=== PATIENT | male | born 1990 | race Caucasian/White ===

== ENCOUNTER 2018-08-06 14:27 | Inpatient (IN) ==
--- NOTE | 2018-08-06 14:39 | Emergency Department Note ---
Disposition Clinical Impression: Suicide ideation Bipolar affect, depressed Qualifiers: Current episode severity: unspecified Qualified Code(s): F31.30 - Bipolar disorder, current episode depressed, mild or moderate severity, unspecified Disposition: Admitted As Inpatient Condition: Good Time of Disposition: 17:51 Psych HPI - General Stated Complaint: SI Time Seen by Provider: 08/06/18 14:28 Source: patient, EMS Mode of arrival: EMS Limitations: no limitations Nursing Notes Reviewed: Yes Vital Signs Reviewed: Yes - History of Present Illness HPI Narrative: Male patient being sent from [facility] ER for evaluation our facility by our psychiatric team. Patient had lab work completed there but no urinalysis was able to be completed because the patient was able to urinate. Patient is pink slipped at this time. The report as the patient did hold a gun to his head in front of his because he thought she was cheating on him. He ended up filling the ER at one point to go over to sciatica pain probably to be evaluated there however they were unable to evaluate and so they sent him back to the ER. Patient reports that he did have suicidal ideation other day. States he did hold a gun to his head at that time. Patient does have a history of bipolar and is mostly taking an unknown medication for that however he stopped this about 2 weeks ago because he ran out. When questioned about hallucinations he reports he thinks that his is seeing on x-ray set up cameras to look for this. He then got upset because she turned the cameras cough. This is when he decided she will be down to his head. While sitting in the bed the patient is denying suicidal or homicidal ideation. He denies any hallucinations at this exact time. He has no other complaints. No nausea vomiting diarrhea fevers or chills. Vitals are stable. - Related Data Home Medications Medication Instructions Recorded Confirmed No Known Home Drugs 08/06/18 08/06/18 Allergies Allergy/AdvReac Type Severity Reaction Status Date / Time No Known Allergies Allergy Verified 08/06/18 12:04 All systems ED: reviewed and negative except as stated. Review of Systems: As Per HPI Constitutional: Denies: fever ENT ED: Denies: congestion Cardiovascular: Denies: chest pain, palpitations Respiratory: Denies: cough, dyspnea Gastrointestinal: Denies: abdominal pain, nausea, vomiting, diarrhea Musculoskeletal: Denies: back pain Psychiatric: Reports: suicidal thoughts, other (Patient reports setting of a video camera in his house to touch his cheating on him.). Denies: homicidal thoughts, auditory hallucinations, visual hallucinations Past Medical History - Past Medical History Attestation: Yes The following information was validated with the patient. 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 Absent: tenderness - Respiratory Respiratory exam: Present: normal lung sounds bilaterally, respiratory distress. Absent: accessory muscle use - Cardiovascular Cardiovascular exam: Present: regular rate, normal rhythm, normal heart sounds - Abdominal Exam Abdominal exam: Present: soft, Non-Tender. Absent: tenderness, distention, guarding, rebound, rigidity, organomegaly - Extremities Exam Extremities exam: Present: normal inspection, full ROM, normal capillary refill. Absent: tenderness, pedal edema, calf tenderness - Neurological Exam Neurological exam: Present: alert, oriented X3 - Psychiatric Psychiatric exam: Present: normal affect, normal mood - Skin Skin exam: Present: warm, dry, intact, normal color. Absent: rash, cyanosis, diaphoresis Course Course Narrative: Patient's workup completed with the exception of his urinalysis and urine tox screen appetite. He was pink slipped therefore suicidal threats greater than a day ago. Patient does have a history of bipolar and is currently off his me dication. We will finish the workup and have him evaluated by Ia. He is currently pink slipped. He has no complaints currently. - Reevaluation(s) Reevaluation #1: Patient evaluated by Ia. We will admit patient to hospital at this time. Time: 17:50 Vital Signs Temperature 97.3 F L 08/06/18 14:36 Pulse Rate 99 08/06/18 14:36 Respiratory Rate 16 08/06/18 14:36 Blood Pressure 135/84 08/06/18 14:36 O2 Sat by Pulse Oximetry 98 08/06/18 14:36 Temperature 97.3 F L 08/06/18 14:36 Pulse Rate 99 08/06/18 14:36 Respiratory Rate 16 08/06/18 14:36 Blood Pressure 135/84 08/06/18 14:36 O2 Sat by Pulse Oximetry 98 08/06/18 14:36 Oxygen Delivery Oxygen Delivery Room Air Psych - Lab Data Lab Results 08/06/18 08/06/18 Range/Units 15:46 15:46 Urine Color Yellow (Yellow) Urine Clarity Clear (Clear) Urine pH 6.5 (5.0-8.0) pH Units Ur Specific [place] 1.008 L (1.010-1.025) Urine Protein Negative (Neg-Trace) mg/dL Urine Glucose (UA) Normal (Normal) mg/dL Urine Ketones Negative (Negative) mg/dL Urine Blood Negative (Negative) Urine Nitrite Negative (Negative) Urine Bilirubin Negative (Negative) Urine Urobilinogen Normal (Normal) mg/dL Ur Leukocyte Esterase Negative (Negative) Ur Culture Indicated? NO (NO) Urine Opiates Screen Negative (Ideonl=543) ng/mL Ur Barbiturates Screen Negative (Mknmtf=635) ng/mL Ur Phencyclidine Scrn Negative (Cutoff=25) ng/mL Ur Amphetamines Screen Positive H (Ziocpj=4729) ng/mL U Benzodiazepines Scrn Negative (Agvnon=906) ng/mL Urine Cocaine Screen Negative (Cutoff= 300) ng/mL U Marijuana (THC) Screen Negative (Cutoff = 50) ng/mL Ur Drug Screen Interp See Below Psychiatric Medical Clearance - Medical Clearance Checklist Medical History: No Social History Section defined Current Vitals: Last Vital Signs Temp 97.3 F L 08/06/18 14:36 Pulse 99 08/06/18 14:36 Resp 16 08/06/18 14:36 BP 135/84 08/06/18 14:36 Pulse Ox 98 08/06/18 14:36 Psychiatric Lab Panel: Drug Levels and Toxicity 08/06/18 15:46 Urine Opiates Screen Negative Ur Barbiturates Screen Negative Ur Phencyclidine Scrn Negative Ur Amphetamines Screen Positive H U Benzodiazepines Scrn Negative Urine Cocaine Screen Negative U Marijuana (THC) Screen Negative Abnormal Labs: Abnormal lab results Ur Specific [place] 1.008 (1.010-1.025) L 08/06/18 15:46 Ur Amphetamines Screen Positive ng/mL (Rsiihn=[id number]) H 08/06/18 15:46 Statement of Medical Clearance: I have evaluated the patient, reviewed diagnostic information, and certify that the patient's medical condition is sufficiently stable that transfer to the psychiatric unit does not pose a significant risk of deterioration. Attestation Statement - Attestation Attestation: I, Luke Jacobs, examined this patient and my medical decision-making was reviewed with the BACKEND PYTHON DEVELOPER/PA/Advanced Practice Nurse/Resident Physician. I agree with the documented findings, disposition and treatment plan as described except to the extent set forth below. 28-year-old male presents emergency Department with concerns of suicidal ideation. Patient was initially evaluated in outpatient emergency department where he was medically cleared and sent for further evaluation. Patient has been having pervasive thoughts about his significant other cheating on him. They were in a verbal agreement, he grabbed a gun and held it to his head. He admitted to this in the emergency department during our read reevaluation. He did however state that he had "pretended to load the gun" in order to "see her reaction". Patient was medically cleared and evaluated by behavioral health who agreed that he required inpatient treatment for suicidal ideation.
[2018-08-06 16:01] LABS: Bilirubin,Urine Negative (Negative); Blood,Urine Negative (Negative); Clarity,Urine Clear (Clear); Color,Urine Yellow (Yellow); Glucose,Urine (UA) Normal (Normal); Ketones,Urine Negative (Negative); Leukocyte Esterase,Urine Negative (Negative); Nitrite,Urine Negative (Negative); PH,Urine 6.5 pH Units (5.0-8.0); Protein,Urine Negative (Neg-Trace); Specific Gravity,Urine 1.008 (1.010-1.025); Urobilinogen,Urine Normal (Normal)
[2018-08-06 16:15] LABS: Amphetamine Screen,Urine Positive ng/mL (Cutoff=1000); Barbiturate Screen,Urine Negative ng/mL (Cutoff=200); Benzodiazepines Screen,Urine Negative ng/mL (Cutoff=200); Cannabinoid Screen,Urine Negative ng/mL (Cutoff = 50); Cocaine Screen,Urine Negative ng/mL (Cutoff= 300); Opiate Screen,Urine Negative ng/mL (Cutoff=300); Phencyclidine Screen,Urine Negative ng/mL (Cutoff=25)
[2018-08-06] MEDS ORDERED: MOM Conc 10 ML UD.LIQ PO PRN (18:34)
[2018-08-06] MEDS ORDERED: traZODone 50 MG TABLET PO PRN (18:34)
[2018-08-06] MEDS ORDERED: *HR* LORazepam 1 MG TABLET PO PRN (18:34)
[2018-08-06] MEDS ORDERED: Haloperidol Lactate 5 MG/ML VIAL IM PRN (18:34)
[2018-08-06] MEDS ORDERED: *HR* LORazepam 2 MG/ML VIAL IM PRN (18:34)
[2018-08-06] MEDS ORDERED: Mag Hydrox/Al Hydrox/Simeth 30 ML UDC PO PRN (18:34)
[2018-08-06] MEDS ORDERED: Acetaminophen 325 MG TABLET PO PRN (18:34)
[2018-08-06] MEDS ORDERED: Nicotine 2 MG GUM BC PRN (19:05)
[2018-08-06] MEDS ORDERED: Ibuprofen 400 MG TABLET PO PRN (19:40)
[2018-08-06] MEDS: hydrOXYzine pamoate 25 MG CAPSULE PO PRN (20:07)
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
[2018-08-07] MEDS: hydrOXYzine pamoate 25 MG CAPSULE PO PRN (21:30)
--- NOTE | 2018-08-08 10:12 | Psychiatry Progress Note ---
Date of Encounter: 08/08/18 Time of Encounter: 09:57 Subjective Interval history: Patient has been doing well and tolerating the medications. He visited with his yesterday which went well. He plans to go back and live with her and is just going to move forward and not worry about if she did have an affair or not. He denies suicidal or homicidal thoughts, ideations, or plans. No psychosis. Sleep and appetite good. Review of Systems Psychiatric: Denies: depression, suicidal ideation, change in appetite, homicidal ideation, difficulty concentrating Results - Vital Signs Vital Signs: Temp Pulse Resp BP Pulse Ox 97.2 F L 85 16 118/79 97 08/08/18 09:00 08/08/18 09:00 08/08/18 09:00 08/08/18 09:00 08/08/18 09:00 Assessment and Plan (1) Anxiety Current visit: Yes Status: Chronic Plan: Continue hospitalization, Close observation, Suicide Precautions per unit protocol, Encourage participation in unit milieu, Group Therapy, Monitor sleep, Monitor appetite, Secure weapons (drug abuse social worker to call to verify that gun was removed from the home. ) Additional Plan: Continue medication Therapist to call to verify no more gun in home groups Risks, benefits, side effects, alternatives discussed w/pt: Yes Patient agreeable to treatment: Yes (2) Nicotine dependence Current visit: Yes Status: Acute Additional Plan: counselled re use Risks, benefits, side effects, alternatives discussed w/pt: Yes Patient agreeable to treatment: Yes Qualifiers: Nicotine product type: cigarettes Substance use status: uncomplicated Qualified Code(s): F17.210 - Nicotine dependence, cigarettes, uncomplicated Consult Discharge Plan - Plan Referrals: NONE,PCP [Primary Care Provider] - Psychiatry Exam - Constitutional Vitals: Temp Pulse Resp BP Pulse Ox 97.2 F L 85 16 118/79 97 08/08/18 09:00 08/08/18 09:00 08/08/18 09:00 08/08/18 09:00 08/08/18 09:00 General appearance: age & developmentally appropriate, well-groomed, well- nourished - Musculoskeletal Gait: normal Station: relaxed Strength & Tone: normal for patient - Psychiatric Patient Orientation: Yes Person, Yes Time, Yes Place Level of alertness: Alert Behavior: calm, cooperative Psychomotor activity: Normal Eye Contact: Maintains Eye Contact Mood Description: Euthymic/stable Patient description of mood: "ok" Affect description: congruent with mood, full range Speech Volume: Normal Speech pattern: normal rate, normal rhythm, normal tone, fluent, spontaneous Language & Vocabulary: consistent with education Thought Process: Linear, Goal Oriented Thought Content: No Suicidal ideation, No Homicidal ideation, No Overt delusions Perceptual Disturbances: No Auditory hallucinations, No Visual hallucinations Attention Span Ability: Capable of Focused Attention Memory Description: Grossly Intact Patient Reliability: Reliable Historian Fund of knowledge: Yes abstraction ability, Yes aware of current events Intelligence Estimate: Average Judgment: Good Insight: Full
[2018-08-08] MEDS: Neosporin OINT 15 GM TUBE TP SCH (22:09)
--- NOTE | 2018-08-09 09:04 | Discharge Summary ---
Date of Encounter: 08/09/18 Time of Encounter: 09:02 Diagnosis - Discharge Diagnosis (1) Anxiety Status: Chronic (2) Nicotine dependence Status: Acute Qualifiers: Nicotine product type: cigarettes Substance use status: uncomplicated Qualified Code(s): F17.210 - Nicotine dependence, cigarettes, uncomplicated Medications - Discharge Medications Prescriptions: hydrOXYzine pamoate [HydrOXYzine Pamoate] 25 mg PO TID PRN #60 capsule PRN Reason: Anxiety Sertraline [Zoloft] 50 mg PO DAILY #30 tablet traZODone [TraZODone] 50 mg PO HS PRN #30 tablet PRN Reason: Insomnia Sertraline [Zoloft] 50 mg PO DAILY #30 tablet 08/09/18 [Rx] hydrOXYzine pamoate [HydrOXYzine Pamoate] 25 mg PO TID PRN #60 capsule 08/09/18 [Rx] traZODone [TraZODone] 50 mg PO HS PRN #30 tablet 08/09/18 [Rx] Allergy/AdvReac Type Severity Reaction Status Date / Time No Known Allergies Allergy Verified 08/06/18 12:04 Results Procedures and tests throughout hospitalization: Completed Lab Orders Category Date Time Status Urinalysis Reflex Cult & Micro [URIN] Stat Lab 08/06/18 15:46 Completed Urine tox screen [Drug Screen, Urine] [UCHEM] Stat Lab 08/06/18 15:46 Completed Provider Date of admission: 08/06/18 18:19 Primary care physician: PCP NONE Discharging clinician: Ramonita Gomez Psychiatry Exam - Constitutional Vitals: Temp Pulse Resp BP Pulse Ox 97.2 F L 67 16 114/67 97 08/08/18 21:00 08/08/18 21:00 08/08/18 21:00 08/08/18 21:00 08/08/18 21:00 General appearance: age & developmentally appropriate, well-groomed, well-nourished - Musculoskeletal Gait: normal Station: relaxed Strength & Tone: normal for patient - Psychiatric Patient Orientation: Yes Person, Yes Time, Yes Place Level of alertness: Alert Behavior: calm, cooperative Psychomotor activity: Normal Eye Contact: Maintains Eye Contact Mood Description: Euthymic/stable Patient description of mood: Good. Ready to get out of here" Affect description: congruent with mood, full range Speech Volume: Normal Speech pattern: normal rate, normal rhythm, normal tone, fluent, spontaneous Language & Vocabulary: consistent with education Thought Process: Linear, Goal Oriented Thought Content: No Suicidal ideation, No Homicidal ideation, No Overt delusions Perceptual Disturbances: No Auditory hallucinations, No Visual hallucinations Attention Span Ability: Capable of Focused Attention Memory Description: Grossly Intact Patient Reliability: Reliable Historian Fund of knowledge: Yes abstraction ability, Yes aware of current events Intelligence Estimate: Average Judgment: Good Insight: Full Hospital Course Hospital course: Mr. Parada is a 28 year old male who was admitted for allegedly having placed an unloaded gun to his head. He maintained throughout his hospitalization that he did not do this. He was started on Zoloft for depression and anxiety as well as when necessary Vistaril for anxiety and when necessary trazodone for insomnia.Patient was educated of diagnosis and the risk-benefit side effects of this alternative treatment options and was monitored for responsiveness and side effects. Mood anxiety sleep and appetite interest improved as did future orientation. Self-harm thoughts subsided, thinking cleared, psychosis resolved, and mood stabilized. Patient was able to attend both individual and group therapy sessions as well as meet with the psychiatrist daily and urged to discuss any medication or treatment issues or other concerns. The patient was educated primarily by verbal means about their diagnosis and manifestations in their life. The option for treatment including group and individual therapy programming was offered to the patient in addition to the use of medications with all their potential risks, benefits, and side effects as well as the risks of not taking medication and non-adhereance were discussed with the patient at length. The patient was given the opportunity to ask questions and was noted to participate in the treatment in the planning process. The patient felt ready and eager to be discharged from the inpatient psychiatric unit to continue on with treatment as an outpatient. The patient agreed that is they were safe for this disposition. The patient was considered to be able to participate in informed consent and decision making with respect to medical, legal, and financial issues of the time of discharge. At the time of discharge the patient adamantly denied any concerns for lethality including suicidal or homicidal thoughts ideations or plans and was future oriented toward ongoing mental health care, medical follow-up and sobriety. The therapist verified that the patient's removed the gun from the home. Time spent discussing smoking cessation with patient: 3 to 10 minutes Does patient wish to continue nicotine replacement upon disc: No - Time Spent with Patient Total time spent providing and/or coordinating discharge services: 25 Less than 30 minutes Specific discharge activities: Interval history reviewed. Available labs reviewed . Psychotherapy provided. Patient had an opportunity to ask questions and address concerns. Patient was in agreement with the treatment plan. The risks benefits and side effects of medications were discussed with the patient, including alternatives and treatment. The patient was educated on the abstaining from any alcohol or illicit substances, following up with all scheduled appointments, and taking all medications as prescribed. The patient was educated on 90 meetings in 90 days and to find a sponsor. Assessment and Plan - Patient/Caregiver Discharge Instructions Activity: resume usual activities as tolerated, return to work Diet: regular diet Additional Instructions: Continue current medications. Follow up with outpatient mental health. Encourage continued therapy in a group or individual setting. The patient was discharged to home. - Follow up Plan Follow up with: NONE,PCP [Primary Care Provider] - Functional capacity at discharge: independent ambulation Overall status at discharge: Stable Disposition: Home, Self-Care Quality - Multiple Antipsychotics Patient discharged on 2 or more antipsychotic medications: No Procedures - Procedures Procedures: Medication Management, Crisis Stabilization, Supportive Therapy, Group Therapy, Psychoeducational Therapy
[2018-08-09] MEDS: Neosporin OINT 15 GM TUBE TP SCH (09:25)
[2018-08-09 10:09] VITALS: BP 125/74
== END 2018-08-09 11:12 | disposition home or self-care (01) | DRG 756 ==
LOC: EMEROOARM 14:27 → 1ANU 18:19
PROVIDERS: ADMIT Psychiatry & Neurology Psychiatry; ATTEND Psychiatry & Neurology Psychiatry

== ENCOUNTER 2019-01-12 16:47 | Observation (INO) ==
--- NOTE | 2019-01-12 18:33 | Emergency Department Note ---
Disposition Clinical Impression: Suicidal ideation Disposition: Admitted As Inpatient Condition: Fair Referrals: NONE,PCP [Primary Care Provider] - Time of Disposition: 18:33 General Adult HPI - General Chief complaint: ED Psychiatric Symptoms Stated complaint: si Time Seen by Provider: 01/12/19 17:00 Source: EMS Limitations: no limitations Nursing Notes Reviewed: Yes Vital Signs Reviewed: Yes - History of Present Illness HPI Narrative: Patient presents with suicidal ideation but he does not have a plan. Patient has been using methamphetamine and also using heroin. He is upset recently because his and kids have left him. He does not have hallucinations. No homicidal ideation or plan. Social history: Drug use Pain Scale: 5 - Related Data Allergies Allergy/AdvReac Type Severity Reaction Status Date / Time No Known Allergies Allergy Verified 10/05/18 00:48 All systems ED: reviewed and negative except as stated. Past Medical History - Past Medical History Medical history: Reports: no medical history Surgical history: Reports: other (Testicular surgery) Psychiatric history: Reports: bipolar - Social History Smoking Status: Current every day smoker Smokeless Tobacco Status: No Alcohol use: Reports: none Drug use: Reports: opiates, methamphetamine Physical Exam CONSTITUTIONAL: Alert and oriented X3, well-nourished, well appearing, in no apparent distress HEAD: Normocephalic; atraumatic. EYES: PERRL, no scleral icterus. NOSE: The nose is normal in appearance without rhinorrhea RESP: Normal chest excursion with respiration; breath sounds clear and equal bilaterally; no wheezes, rhonchi, or rales CARD: Regular rhythm, without murmurs, rub or gallop ABD: Non-distended; non-tender, soft,without rigidity, rebound or guarding SKIN: Normal for age and race; warm and dry; no apparent lesions - General Limitations: no limitations Course Vital Signs Temperature 98 F 01/12/19 16:52 Pulse Rate 73 01/12/19 16:52 Respiratory Rate 16 01/12/19 16:52 Blood Pressure 110/61 01/12/19 16:52 O2 Sat by Pulse Oximetry 98 01/12/19 16:52 Temperature 98 F 01/12/19 16:52 Pulse Rate 73 01/12/19 16:52 Respiratory Rate 16 01/12/19 16:52 Blood Pressure 110/61 01/12/19 16:52 O2 Sat by Pulse Oximetry 98 01/12/19 16:52 Oxygen Delivery Oxygen Delivery Room Air Medical Decision Making - MDM Narrative Medical decision making narrative: Patient did have lab results and I did review these and [facility] was contacted and they have seen the patient and I did speak with them and they would like the patient admitted so I will fill out a pink slip form the patient will be admitted. [id number]
[2019-01-12] MEDS ORDERED: *HR* LORazepam 1 MG TABLET PO PRN (19:20)
[2019-01-12] MEDS ORDERED: Haloperidol Lactate 5 MG/ML VIAL IM PRN (19:20)
[2019-01-12] MEDS ORDERED: traZODone 50 MG TABLET PO PRN (19:20)
[2019-01-12] MEDS ORDERED: *HR* LORazepam 2 MG/ML VIAL IM PRN (19:20)
[2019-01-12] MEDS ORDERED: hydrOXYzine pamoate 25 MG CAPSULE PO PRN (19:20)
[2019-01-12] MEDS ORDERED: Ibuprofen 400 MG TABLET PO PRN (19:20)
[2019-01-12] MEDS ORDERED: Mag Hydrox/Al Hydrox/Simeth 30 ML UDC PO PRN (19:20)
[2019-01-12] MEDS ORDERED: MOM Conc 10 ML UD.LIQ PO PRN (19:20)
--- NOTE | 2019-01-13 16:46 | Discharge Summary ---
Date of Encounter: 01/14/19 Time of Encounter: 16:45 History of Present Illness Chief complaint: "I'm doin' better." Admitted From: Emergency Dept History of Present Illness: Mr. Parada is a 28 year old male who tells me "I'm doin' good". He explains to me that he was brought in by his mother after he got to a disagreement with his over the issue of his drug use. He states he told his mother bring to the hospital, at the time he was having thoughts of suicide but denies having those thoughts at this time. He explained to me is been in drug rehab and had been attending twelve-step programs regularly. He had 90 days of sobriety. He tells me he has been doing well at sobriety, but still having conflict with his . She does not believe that he is clean and sober. She thinks that when he is going to mormon or meetings that he is actually using. He states he finally had enough of fighting to defend himself and trying to get her to believe, so said that if she thinks that, then I am going to use and went out and relapsed on Meth. He explains that it was not a smart thing to do. He understands now that it was self-defeating. He is not having craving now, but feels anxious and agitated secondary to what he did. He realizes that he needs to move on with his life and focus on his life and being sober and happy. He states the him his have been estranged for a while over his drug use and even though he sober she does not believe him. He knows that this will not change any time soon. He states he has plans to move to [place], and go ahead and allow the divorce from his . 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 He will move in with family that lives in [place]. He plans to go live with his mother till he gets transitioned to [place], which she believes will take about a week. He states all of his belongings are already in his mother's house. He is close to his 2 children and plans to keep a relationship with them. He denies any problems with depression or anxiety. He states he is frustrated over his behaviour, but not suicidal. He does have a history of having been on Zoloft in the past for treatment of depression, but did not find it helpful and stopped October. He sees practitioner at [facility] in [place], Amira Arias. He can go back to seeing her if he decides to go back on the medication, but will probably be in [place]. He denies any auditory/visual hallucinations. He has no history of suicide attempts. He denies any feelings of hopelessness/helplessness. He likes to go fishing and is still goes fishing. He is not given up on things in his life and his interests. He is not paranoid. He has no thoughts of mind reading or being able to get special messages from the TV or radio. He denies any anxiety at this time except the situational anxiety over what he did with his relapse. Past Med Surg Social Fam HX - Past Medical History Medical history: no medical history - Past Psychiatric History Psychiatric history: Reports: depression Past psychiatric history details: Saw a LOGISTICS TEAM LEADER for SSRI's. Went to drug counseling at [facility] for treatment. Family psychiatric history: No Family History of Suicide: None - Past Surgical History Surgical History: other (Testicular surgery) - Social History Smoking Status: Current every day smoker Smokeless Tobacco Status: No Alcohol use: none Drug use: opiates, methamphetamine Occupational status: unemployed Current living situation: Home - Independent Activity Level: Independent ambulation Recent Out of Country Travel Within the Last 8 Weeks: No Exposure or Possible Exposure to Illness During Travel: No Medications - Discharge Medications No Known Home Drugs 01/12/19 [History] Allergy/AdvReac Type Severity Reaction Status Date / Time No Known Allergies Allergy Verified 10/05/18 00:48 Review of Systems Psychiatric: Reports: depression, anxiety, abnormal sleep pattern, suicidal ideation (denies), irritability Exam - HEENT Head exam IM: Present: atraumatic Eye exam IM: Present: EOMI ENT exam IM: Present: mucous membranes moist - Neurological Neurological exam: Present: CN II-XII intact (per ED eval) - Constitutional Vitals: Temp Pulse Resp BP Pulse Ox 97.7 F 66 20 129/75 96 01/13/19 09:00 01/13/19 09:00 01/13/19 09:00 01/13/19 09:00 01/13/19 09:00 General appearance: age & developmentally appropriate, obese (mildly) - Musculoskeletal Gait: normal Strength & Tone: normal for patient - Psychiatric Patient Orientation: Yes Person, Yes Time, Yes Place, Yes Circumstance Level of alertness: Alert (but tired) Behavior: cooperative Psychomotor activity: Normal Eye Contact: Fleeting Contact Mood Description: Anxious, Other (sad) Affect description: congruent with mood Speech Volume: Normal Speech pattern: normal rate, normal rhythm, normal tone, fluent Language & Vocabulary: consistent with education Thought Process: Intact, Linear, Goal Oriented Thought Content: Yes Intact Attention Span Ability: Capable of Focused Attention Memory Description: Grossly Intact Patient Reliability: Reliable Historian Fund of knowledge: Yes average Intelligence Estimate: Average Judgment: Fair Insight: Partial Diagnosis - Discharge Diagnosis (1) Depression Status: Acute Qualifiers: Depression Type: unspecified Qualified Code(s): F32.9 - Major depressive disorder, single episode, unspecified (2) Amphetamine abuse Status: Acute Assessment and Plan - Patient/Caregiver Discharge Instructions Activity: resume usual activities as tolerated Diet: regular diet - Follow up Plan Follow up with: Christi Arias CNP [Advanced Practice Nurse] - 01/17/19 11:30 am (You have an appointment scheduled with this provider on Thursday, January 17, 2019 at 11:30 AM. Please keep all of your healthcare providers informed of any changes in your medications, treatments or medical conditions. Please contact the office at the number above at least 24 hours in advance if you are unable to keep this appointment. ) Functional capacity at discharge: independent ambulation Overall status at discharge: Stable Disposition: Home, Self-Care Provider Date of admission: 01/12/19 18:59 Primary care physician: PCP NONE Hospital Course Hospital course: 14 January 2019 @ 0920' Discharge Summary: Mr. Parada is a 28 year old male patient tells me this morning " I feel better after a shower" and then laughs. He tells me feels happy and is ready to be discharged home. He reports, and staff confirms, that his mother came in last night for visitation. He is fine to go live with her and she supports that. She is not concerned about any self harm behavior, but is concerned about his relapse of methamphetamine. Patient and I talked about his relapse and he was encouraged to [facility] and to attend 12-step meetings as he had been doing. He states that he will do that. Patient denies any SI/HI. He denies any mental health signs and symptoms at this time. He will have contact with his and children and plans to move to [place] to provide financial support for them here. He states that he slept well last night, is eating fine and no longer feels anxious or angry at himself for what he did. He did not take any medications while on the unit. Staff did not observed any abnormal behavior. 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 He is future oriented, he is calm and relaxed, he is jovial with a normal bright affect. We discussed his discharge plan and he will be discharged to his mother's care/home, without psychotropic medications. Time spent discussing smoking cessation with patient: 3 to 10 minutes Does patient wish to continue nicotine replacement upon disc: No - Time Spent with Patient Total time spent providing and/or coordinating discharge services: 25 min Less than 30 minutes (Return to [facility] in [place] for follow up on relapse) Procedures - Procedures Procedures: Crisis Stabilization, Supportive Therapy Quality - Multiple Antipsychotics Patient discharged on 2 or more antipsychotic medications: No
[2019-01-14 09:24] VITALS: BP 122/82
== END 2019-01-14 11:05 | disposition home or self-care (01) ==
LOC: EMEROOARM 16:47 → 1ANU 18:59 → SUATTDRO 18:59 → INTOOBSV 18:59 → 1ANU 19:06
PROVIDERS: ADMIT Psychiatry & Neurology Psychiatry; ATTEND Psychiatry & Neurology Psychiatry